=== PATIENT | male | born 1950 | race Caucasian/White ===

== ENCOUNTER 2017-02-25 20:58 | Emergency (ER) | payer MEDICARE ==
[~2017-02-25 20:58] MED LIST: ASPI81TA82 PO; DIVA250T PO; DIVA500 PO; LEVEMIR SQ; RISP25P IM; SYMB80AE INH; TAMS.4 PO
[2017-02-25 21:05] VITALS: BP 170/84; PULSE 73; RESP 18; TEMP 98.3; O2SAT 98
[2017-02-25] MEDS ORDERED: INSULIN HUMAN NPH/R 70/30 1,000 UNITS/10 ML VIAL SQ ONE (21:15)
[2017-02-25] MEDS ORDERED: SODIUM CHLORID 0.9% 500 ML INJ 500 ML IV ONE (21:15)
--- NOTE | 2017-02-25 21:22 | PD ---
HPI Chief Complaint: General Weakness Time Seen by Provider: 21:09 Travel History International Travel<30 days: No Contact w/Intl Traveler<30days: No Traveled to known affect area: No History of Present Illness HPI This Is a 66-year-old man who presents to the emergency department brought in by EMS because she's been feeling faint and weak lightheaded and unsteady since he started carbidopa/levodopa 10/100, 3 days ago. He otherwise had been feeling generally well. Denies any recent infections or illnesses. No other complaints. States symptoms started immediately after starting this new medication. Denies any other new or worsening symptoms. No other complaints. History Past Medical History Narrative Medical Diabetes CAD, history Chronic Kidney Disease Hypertension Bipolar Disorder, Schizophrenia Dementia Parkinson's Disease Social History Alcohol Use: No Tobacco Use: No Allergies-Medications (Allergen,Severity, Reaction): Coded Allergies: No Known Allergies (Unverified , 02/25/17) Reported Meds & Prescriptions Reported Meds & Active Scripts Active Reported Novolog Mix 70-30 Inj (Insulin Aspart Prota 70%/Aspart 30%) 1,000 Unit/10 Ml Vial 10 Units SQ BID Carbidopa-Levodopa 10-100 Mg Tab 1 Tab PO Q8HR Ranitidine (Ranitidine HCl) 150 Mg Cap 150 Mg PO BID Divalproex ER (Divalproex Sodium) 500 Mg Tab 500 Mg PO BID Pantoprazole (Pantoprazole Sodium) 40 Mg Tab 40 Mg PO DAILY Benztropine (Benztropine Mesylate) 1 Mg Tab 1 Mg PO HS Tamsulosin (Tamsulosin HCl) 0.4 Mg Cap 0.4 Mg PO HS Risperidone 2 Mg Tab 2 Mg PO HS Aspirin 81 Mg Tabdr 81 Mg PO DAILY Lisinopril 5 Mg Tab 5 Mg PO DAILY Review of Systems Except as stated in HPI: all other systems reviewed are Neg Physical Exam Narrative GENERAL: Well-appearing 66 old man, obvious resting tremor worse in the right upper extremity. SKIN: Focused skin assessment warm/dry. NECK: Trachea midline. No JVD. CARDIOVASCULAR: Regular rate and rhythm. No murmur appreciated. RESPIRATORY: No accessory muscle use. Clear to auscultation. Breath sounds equal bilaterally. GASTROINTESTINAL: Abdomen soft, non-tender, nondistended. Hepatic and splenic margins not palpable. MUSCULOSKELETAL: No obvious deformities. No edema. NEUROLOGICAL: Awake and alert. No obvious cranial nerve deficits. Tremor in the upper extremities, right worse than left. Motor grossly within normal limits. Normal speech. Data Data Last Documented VS Vital Signs Date Time Temp Pulse Resp B/P Pulse Ox O2 Delivery O2 Flow Rate FiO2 02/25/17 21:10 16 96 Room Air 02/25/17 21:05 98.3 73 170/84 Orders Complete Blood Count With Diff (02/25/17 21:09) Comprehensive Metabolic Panel (02/25/17 21:09) Valproic Acid (Depakene) (02/25/17 21:09) Iv Access Insert/Monitor (02/25/17 21:09) Urinalysis - C+S If Indicated (02/25/17 21:09) Troponin I (02/25/17 21:09) Thyroid Stimulating Hormone (02/25/17 21:09) Electrocardiogram (02/25/17 ) Insulin Human Nph/R 70/30 Inj (Novolin 7 (02/25/17 21:15) Sodium Chlorid 0.9% 500 Ml Inj (Ns 500 M (02/25/17 21:15) Labs Laboratory Tests Test 02/25/17 02/25/17 21:15 22:15 White Blood Count 6.8 TH/MM3 Red Blood Count 4.26 MIL/MM3 Hemoglobin 13.4 GM/DL Hematocrit 39.6 % Mean Corpuscular Volume 93.1 FL Mean Corpuscular Hemoglobin 31.5 PG Mean Corpuscular Hemoglobin 33.8 % Concent Red Cell Distribution Width 13.7 % Platelet Count 120 TH/MM3 Mean Platelet Volume 10.1 FL Neutrophils (%) (Auto) 66.7 % Lymphocytes (%) (Auto) 22.4 % Monocytes (%) (Auto) 7.0 % Eosinophils (%) (Auto) 3.5 % Basophils (%) (Auto) 0.4 % Neutrophils # (Auto) 4.5 TH/MM3 Lymphocytes # (Auto) 1.5 TH/MM3 Monocytes # (Auto) 0.5 TH/MM3 Eosinophils # (Auto) 0.2 TH/MM3 Basophils # (Auto) 0.0 TH/MM3 CBC Comment DIFF FINAL Differential Comment Sodium Level 138 MEQ/L Potassium Level 5.5 MEQ/L Chloride Level 105 MEQ/L Carbon Dioxide Level 22.5 MEQ/L Anion Gap 11 MEQ/L Blood Urea Nitrogen 38 MG/DL Creatinine 2.38 MG/DL Estimat Glomerular Filtration 28 ML/MIN Rate Random Glucose 294 MG/DL Calcium Level 7.7 MG/DL Total Bilirubin 0.3 MG/DL Aspartate Amino Transf 24 U/L (AST/SGOT) Alanine Aminotransferase 20 U/L (ALT/SGPT) Alkaline Phosphatase 75 U/L Troponin I LESS THAN 0.02 NG/ML Total Protein 5.7 GM/DL Albumin 2.8 GM/DL Thyroid Stimulating Hormone 1.800 uIU/ML 3rd Gen Valproic Acid (Depakene) Level 41 MCG/ML Urine Color LIGHT-YELLOW Urine Turbidity CLEAR Urine pH 6.0 Urine Specific [place] 1.014 Urine Protein 30 mg/dL Urine Glucose (UA) 1000 mg/dL Urine Ketones NEG mg/dL Urine Occult Blood TRACE Urine Nitrite NEG Urine Bilirubin NEG Urine Urobilinogen LESS THAN 2.0 MG/DL Urine Leukocyte Esterase NEG Urine RBC LESS THAN 1 /hpf Microscopic Urinalysis Comment CULT NOT INDICATED MDM Medical Decision Making Medical Screen Exam Complete: Yes Emergency Medical Condition: Yes Interpretation(s) LABS: CBC unremarkable. CMP remarkable for elevated BUN and creatinine consistent with chronic kidney disease, baseline creatinine about 2.2, potassium 5.5 with slight hemolysis Glucose 294 Troponin negative TSH normal Total protein low Valproate 41 Differential Diagnosis Adverse effect to medication, weakness, hyperglycemia, other Narrative Course Medical decision making INITIAL: This 66-year-old man who presents to the emergency department brought in by EMS, I think his sister called because he been feeling weak and lethargic , sleeping a lot, unsteady. He started Sinemet recently for Parkinson's and tremor. He does have chronic kidney disease. He is on other sedating medications including Risperdal at night that is unchanged. He otherwise has been feeling generally well. Denies any recent illness or injury. He called his doctor today who recommended "stopping all my medicines". He has not taken his insulin today. We'll check labs, review medication list, check kidney function, give insulin, reassess. Diagnosis Primary Impression: Adverse effects of medication Additional Impression: Lethargy Additional Instructions: Hold Sinemet until you follow up with her primary doctor on Tuesday. Return to the emergency department for any new or worsening symptoms. Disposition: 01 DISCHARGE HOME Condition: Stable [place] MD February 25, 2017 21:22
[2017-02-25 21:31] LABS: AUTOMATED NEUTROPHIL # 4.5 TH/MM3 (1.8-7.7); BASOPHIL % 0.4 % (0.0-2.0); EOSINOPHIL # 0.2 TH/MM3 (0-0.4); EOSINOPHIL % 3.5 % (0.0-4.0); HEMATOCRIT 39.6 % (39.0-51.0); HEMO FLAGS DIFF FINAL; LYMPH % 22.4 % (9.0-44.0); LYMPHOCYTE # 1.5 TH/MM3 (1.0-4.8); MEAN CELL VOLUME 93.1 FL (80.0-100.0); MEAN CORPUSCULAR HEMOGLOBIN 31.5 PG (27.0-34.0); MEAN CORPUSCULAR HGB CONC 33.8 % (32.0-36.0); NEUT % 66.7 % (16.0-70.0); PLATELET COUNT 120 TH/MM3 (150-450); RED BLOOD COUNT 4.26 MIL/MM3 (4.50-5.90); RED CELL DISTRIBUTION WIDTH 13.7 % (11.6-17.2); WHITE BLOOD COUNT 6.8 TH/MM3 (4.0-11.0)
[2017-02-25] MEDS ORDERED: DIVA500T3 PO (21:49)
[2017-02-25] MEDS ORDERED: NOVOLOGMXP SQ (21:49)
[2017-02-25] MEDS ORDERED: BENZ1TAB PO (21:49)
[2017-02-25] MEDS ORDERED: ASPI1TAB69 PO (21:49)
[2017-02-25] MEDS ORDERED: PANT40TA3 PO (21:49)
[2017-02-25] MEDS ORDERED: TAMS0.4C4 PO (21:49)
[2017-02-25] MEDS ORDERED: LISI-519 PO (21:49)
[2017-02-25] MEDS ORDERED: CARB10TA2 PO (21:49)
[2017-02-25] MEDS ORDERED: RISP2TAB2 PO (21:49)
[2017-02-25] MEDS ORDERED: RANI150C PO (21:49)
[2017-02-25 22:29] LABS: BLOOD, URINE TRACE (NEG); GLUCOSE,URINE 1000 mg/dL (NEG); KETONE, URINE NEG (NEG); NITRITE,URINE NEG (NEG); URINE COLOR LIGHT-YELLOW (YELLW/STRAW)
[2017-02-25 22:30] LABS: COMMENT (UR) CULT NOT INDICATED; CULTURE IF INDICATED CULT NOT INDICATED
[2017-02-25 22:38] LABS: ALT (GPT) 20 U/L (12-78); ANION GAP 11 MEQ/L (5-15); AST (GOT) 24 U/L (15-37); BICARBONATE 22.5 MEQ/L (21.0-32.0); BLOOD UREA NITROGEN 38 MG/DL (7-18); CHLORIDE 105 MEQ/L (98-107); GLOMERULAR FILTRATION RATE 28 ML/MIN (>89); SODIUM (NA) 138 MEQ/L (136-145)
[2017-02-25 22:45] LABS: ALKALINE PHOSPHATASE 75 U/L (45-117); TOTAL BILIRUBIN ADULT 0.3 MG/DL (0.2-1.0)
[2017-02-25 23:12] LABS: POTASSIUM 5.5 MEQ/L (3.5-5.1)
[2017-02-26 05:44] VITALS: BP 167/88; PULSE 74; RESP 15; O2SAT 96
--- NOTE | 2017-02-26 09:56 | EKG ---
Date Performed: 02/25/2017 Time Performed: 22:24:56 PTAGE: 66 years EKG: Sinus rhythm INDETERMINATE AXIS PATTERN CONSISTENT WITH PULMONARY DISEASE ST DEVIATION AND MODERATE T-WAVE ABNORM ALITY, CONSIDER LATERAL ISCHEMIA ABNORMAL ECG NO PREVIOUS TRACING DOCTOR: Randall Owusu Interpretating Date/Time 02/26/2017 09:54:58
== END 2017-02-26 09:53 | disposition home or self-care (01) ==
LOC: NEPC 20:58
DX: R53.83 Other fatigue (principal); T50.905A Adverse effect of unspecified drugs, medicaments and biological substances, initial encounter; I25.10 Atherosclerotic heart disease of native coronary artery without angina pectoris; I12.9 Hypertensive chronic kidney disease with stage 1 through stage 4 chronic kidney disease, or unspecified chronic kidney disease; E11.22 Type 2 diabetes mellitus with diabetic chronic kidney disease; N18.9 Chronic kidney disease, unspecified; R94.31 Abnormal electrocardiogram [ECG] [EKG]; Z79.4 Long term (current) use of insulin; Z79.82 Long term (current) use of aspirin; Z79.899 Other long term (current) drug therapy
CPT/HCPCS: 80053; 80164; 81001; 84443; 84484; 85025; 93005; 96360; 96361; 96372; 99285; J1815; J7040

== ENCOUNTER 2017-03-03 15:07 | Emergency (ER) | payer MEDICARE ==
[~2017-03-03] VITALS: Ht 170.2 cm; Wt 72.0 kg
[~2017-03-03 15:07] MED LIST changes: +ASPI1TAB69 PO; -ASPI81TA82 PO; +BENZ1TAB PO; +CARB10TA2 PO; -DIVA250T PO; -DIVA500 PO; +DIVA500T3 PO; -LEVEMIR SQ; +LISI-519 PO; +NOVOLOGMXP SQ; +PANT40TA3 PO; +RANI150C PO; -RISP25P IM; +RISP2TAB2 PO; -SYMB80AE INH; -TAMS.4 PO; +TAMS0.4C4 PO
[2017-03-03 15:10] VITALS: BP 157/84; PULSE 74; RESP 20; TEMP 97.4; O2SAT 96
--- NOTE | 2017-03-03 15:22 | PD ---
Physical Exam Date Seen by Provider: March 03, 2017 Time Seen by Provider: 15:19 Narrative Pt presents with generalized weakness, shaky feeling. He reports nausea and vomiting. Symptoms started over a year ago. He is followed by a neurologist. He also states he was here the other night with the same complaint. No chest pain, abdominal pain, no head injury. VSS, awaiting bed placement. Data Data Last Documented VS Vital Signs Date Time Temp Pulse Resp B/P Pulse Ox O2 Delivery O2 Flow Rate FiO2 03/03/17 15:10 97.4 74 20 157/84 96 Room Air [facility] Supervised Visit with RAFAEL: Bridget Velez March 03, 2017 15:22
[2017-03-03 16:43] VITALS: O2SAT 97
[2017-03-03] MEDS ORDERED: SODIUM CHLORIDE 0.9% FLUSH 10 ML FLUSH IVF PRN (16:45)
--- NOTE | 2017-03-03 16:48 | PD ---
HPI Chief Complaint: General Weakness Time Seen by Provider: 16:23 Travel History International Travel<30 days: No Contact w/Intl Traveler<30days: No Traveled to known affect area: No History of Present Illness HPI The patient is 66. He has generalized weakness. He feels tired and sleeps most of the day. He states it has been present for "quite some time." He reports evaluations by various doctors. He states he recently discontinued to medications however is not sure which medications are when there were discontinued. It seems as though he stopped taking Sinemet 2 days ago. He has no other systemic complaint to offer. Location generalized. Severity moderate. PFSH Past Medical History Arthritis: No Asthma: No Autoimmune Disease: No Bipolar Disorder: Yes Anxiety: Yes Depression: Yes Heart Rhythm Problems: No Cardiovascular Problems: Yes High Cholesterol: Yes Chest Pain: Yes Congestive Heart Failure: Yes COPD: Yes Cerebrovascular Accident: Yes Diabetes: Yes Diminished Hearing: Yes GERD: Yes Genitourinary: Yes Hiatal Hernia: Yes Hypertension: Yes Implanted Vascular Access Dvce: No Kidney Stones: No Musculoskeletal: No Neurologic: No Psychiatric: Yes Reproductive: No Respiratory: Yes Integumentary: Yes Migraines: No Myocardial Infarction: Yes Renal Failure: No Schizophrenia: Yes Sickle Cell Disease: No Sleep Apnea: No Thyroid Disease: No Ulcer: Yes Past Surgical History AICD: No Arteriovenous Shunt: No Cardiac Surgery: Yes Coronary Artery Bypass Graft: Yes (2012) Insulin Pump: No Joint Replacement: No Pacemaker: No Other Surgery: Yes (CABG 04/2013) Social History Alcohol Use: No Tobacco Use: No Substance Use: No Allergies-Medications (Allergen,Severity, Reaction): Coded Allergies: No Known Allergies (Unverified , 03/03/17) Reported Meds & Prescriptions Reported Meds & Active Scripts Active Reported Novolog Mix 70-30 Inj (Insulin Aspart Prota 70%/Aspart 30%) 1,000 Unit/10 Ml Vial 10 Units SQ BID Carbidopa-Levodopa 10-100 Mg Tab 1 Tab PO Q8HR Ranitidine (Ranitidine HCl) 150 Mg Cap 150 Mg PO BID Divalproex ER (Divalproex Sodium) 500 Mg Tab 500 Mg PO BID Pantoprazole (Pantoprazole Sodium) 40 Mg Tab 40 Mg PO DAILY Benztropine (Benztropine Mesylate) 1 Mg Tab 1 Mg PO HS Tamsulosin (Tamsulosin HCl) 0.4 Mg Cap 0.4 Mg PO HS Risperidone 2 Mg Tab 2 Mg PO HS Aspirin 81 Mg Tabdr 81 Mg PO DAILY Lisinopril 5 Mg Tab 5 Mg PO DAILY Review of Systems Except as stated in HPI: all other systems reviewed are Neg General / Constitutional: No: Fever, Chills Cardiovascular: No: Chest Pain or Discomfort Respiratory: No: Cough, Shortness of Breath Gastrointestinal: No: Nausea, Vomiting, Diarrhea, Abdominal Pain Physical Exam Narrative GENERAL: 66-year-old male well-nourished well-developed no acute distress SKIN: Focused skin assessment warm/dry. HEAD: Atraumatic. Normocephalic. EYES: Pupils equal and round. No scleral icterus. No injection or drainage. ENT: No nasal bleeding or discharge. Mucous membranes pink and moist. NECK: Trachea midline. No JVD. CARDIOVASCULAR: Regular rate and rhythm. No murmur appreciated. RESPIRATORY: No accessory muscle use. Clear to auscultation. Breath sounds equal bilaterally. GASTROINTESTINAL: Abdomen soft, non-tender, nondistended. Hepatic and splenic margins not palpable. MUSCULOSKELETAL: No obvious deformities. No clubbing. No cyanosis. No edema. NEUROLOGICAL: The patient answers questions appropriately. There is a focal cranial nerve deficit. He moves all extremities normally. PSYCHIATRIC: Appropriate mood and affect; insight and judgment normal. Data Data Last Documented VS Vital Signs Date Time Temp Pulse Resp B/P Pulse Ox O2 Delivery O2 Flow Rate FiO2 03/03/17 16:43 97 Room Air 03/03/17 15:10 97.4 74 20 157/84 Vital signs reviewed Orders Westergren Sedimentation Rate (03/03/17 16:25) Complete Blood Count With Diff (03/03/17 16:39) Comprehensive Metabolic Panel (03/03/17 16:39) Creatine Kinase (Cpk) (03/03/17 16:39) Troponin I (03/03/17 16:39) Urinalysis - C+S If Indicated (03/03/17 16:39) Blood Glucose (03/03/17 16:39) Ecg Monitoring (03/03/17 16:39) Iv Access Insert/Monitor (03/03/17 16:39) Oximetry (03/03/17 16:39) Sodium Chloride 0.9% Flush (Ns Flush) (03/03/17 16:45) Drug Screen, Random Urine (03/03/17 16:39) Alcohol (Ethanol) (03/03/17 16:39) Salicylates (Aspirin) (03/03/17 16:39) Tylenol (Acetaminophen) (03/03/17 16:39) Labs Laboratory Tests Test 03/03/17 16:50 White Blood Count 7.8 TH/MM3 Red Blood Count 4.56 MIL/MM3 Hemoglobin 14.2 GM/DL Hematocrit 42.4 % Mean Corpuscular Volume 92.9 FL Mean Corpuscular Hemoglobin 31.0 PG Mean Corpuscular Hemoglobin 33.4 % Concent Red Cell Distribution Width 13.5 % Platelet Count 157 TH/MM3 Mean Platelet Volume 11.0 FL Neutrophils (%) (Auto) 78.7 % Lymphocytes (%) (Auto) 13.8 % Monocytes (%) (Auto) 6.5 % Eosinophils (%) (Auto) 0.7 % Basophils (%) (Auto) 0.3 % Neutrophils # (Auto) 6.1 TH/MM3 Lymphocytes # (Auto) 1.1 TH/MM3 Monocytes # (Auto) 0.5 TH/MM3 Eosinophils # (Auto) 0.1 TH/MM3 Basophils # (Auto) 0.0 TH/MM3 CBC Comment DIFF FINAL Differential Comment MDM Medical Decision Making Medical Screen Exam Complete: Yes Emergency Medical Condition: Yes Medical Record Reviewed: Yes Differential Diagnosis Dehydration, electrolyte imbalance, infection, polypharmacy Narrative Course Blood work pending at time of dictation. Oncoming provider to follow up results and disposition appropriately. Finn Mathew MD March 03, 2017 16:48
[2017-03-03 17:05] LABS: AUTOMATED NEUTROPHIL # 6.1 TH/MM3 (1.8-7.7); BASOPHIL % 0.3 % (0.0-2.0); EOSINOPHIL # 0.1 TH/MM3 (0-0.4); EOSINOPHIL % 0.7 % (0.0-4.0); HEMATOCRIT 42.4 % (39.0-51.0); HEMO FLAGS DIFF FINAL; LYMPH % 13.8 % (9.0-44.0); LYMPHOCYTE # 1.1 TH/MM3 (1.0-4.8); MEAN CELL VOLUME 92.9 FL (80.0-100.0); MEAN CORPUSCULAR HGB CONC 33.4 % (32.0-36.0); MONO % 6.5 % (0.0-8.0); NEUT % 78.7 % (16.0-70.0); PLATELET COUNT 157 TH/MM3 (150-450); RED BLOOD COUNT 4.56 MIL/MM3 (4.50-5.90); RED CELL DISTRIBUTION WIDTH 13.5 % (11.6-17.2); WHITE BLOOD COUNT 7.8 TH/MM3 (4.0-11.0)
[2017-03-03 17:25] LABS: ALT (GPT) 24 U/L (12-78); ANION GAP 8 MEQ/L (5-15); AST (GOT) 31 U/L (15-37); BICARBONATE 23.6 MEQ/L (21.0-32.0); BLOOD UREA NITROGEN 34 MG/DL (7-18); CHLORIDE 103 MEQ/L (98-107); GLOMERULAR FILTRATION RATE 31 ML/MIN (>89); SODIUM (NA) 135 MEQ/L (136-145)
[2017-03-03 17:29] LABS: ACETAMINOPHEN LESS THAN 2.0 MCG/ML (10.0-30.0); ALKALINE PHOSPHATASE 72 U/L (45-117); CREATINE KINASE 112 U/L (39-308); POTASSIUM 5.7 MEQ/L (3.5-5.1); TOTAL BILIRUBIN ADULT 0.5 MG/DL (0.2-1.0)
[2017-03-03 18:21] LABS: BLOOD, URINE SMALL (NEG); GLUCOSE,URINE 300 mg/dL (NEG); KETONE, URINE 10 mg/dL (NEG); NITRITE,URINE NEG (NEG); URINE COLOR YELLOW (YELLW/STRAW)
[2017-03-03 18:35] LABS: COMMENT (UR) CATH-CULT NOT IND; CULTURE IF INDICATED CATH CULTURE NOT IND
[2017-03-03 18:48] VITALS: BP 166/91; PULSE 69; RESP 18; O2SAT 97
--- NOTE | 2017-03-03 18:57 | PD ---
Physical Exam Date Seen by Provider: March 03, 2017 Data Data Last Documented VS Vital Signs Date Time Temp Pulse Resp B/P Pulse Ox O2 Delivery O2 Flow Rate FiO2 03/03/17 18:48 69 18 166/91 97 Room Air 03/03/17 15:10 97.4 Orders Westergren Sedimentation Rate (03/03/17 16:25) Complete Blood Count With Diff (03/03/17 16:39) Comprehensive Metabolic Panel (03/03/17 16:39) Creatine Kinase (Cpk) (03/03/17 16:39) Troponin I (03/03/17 16:39) Urinalysis - C+S If Indicated (03/03/17 16:39) Blood Glucose (03/03/17 16:39) Ecg Monitoring (03/03/17 16:39) Iv Access Insert/Monitor (03/03/17 16:39) Oximetry (03/03/17 16:39) Sodium Chloride 0.9% Flush (Ns Flush) (03/03/17 16:45) Drug Screen, Random Urine (03/03/17 16:39) Alcohol (Ethanol) (03/03/17 16:39) Salicylates (Aspirin) (03/03/17 16:39) Tylenol (Acetaminophen) (03/03/17 16:39) Electrocardiogram (03/03/17 ) Calcium Gluconate Inj (Calcium Gluconate (03/03/17 19:00) Insulin Human Regular Inj (Novolin R Inj (03/03/17 19:15) Dextrose 50% In Patricia (Vial) Inj (D50w (Vi (03/03/17 19:00) Sodium Bicarbonate 8.4% Inj (Sodium Bica (03/03/17 19:00) Basic Metabolic Panel (Bmp) (03/03/17 19:00) Sodium Polysty Sulfate Liq (Kayexalate L (03/03/17 19:00) Sodium Bicarbonate 8.4% Inj (Sodium Bica (03/03/17 19:30) Labs Laboratory Tests Test 03/03/17 03/03/17 03/03/17 16:50 18:10 19:20 White Blood Count 7.8 TH/MM3 Red Blood Count 4.56 MIL/MM3 Hemoglobin 14.2 GM/DL Hematocrit 42.4 % Mean Corpuscular Volume 92.9 FL Mean Corpuscular Hemoglobin 31.0 PG Mean Corpuscular Hemoglobin 33.4 % Concent Red Cell Distribution Width 13.5 % Platelet Count 157 TH/MM3 Mean Platelet Volume 11.0 FL Neutrophils (%) (Auto) 78.7 % Lymphocytes (%) (Auto) 13.8 % Monocytes (%) (Auto) 6.5 % Eosinophils (%) (Auto) 0.7 % Basophils (%) (Auto) 0.3 % Neutrophils # (Auto) 6.1 TH/MM3 Lymphocytes # (Auto) 1.1 TH/MM3 Monocytes # (Auto) 0.5 TH/MM3 Eosinophils # (Auto) 0.1 TH/MM3 Basophils # (Auto) 0.0 TH/MM3 CBC Comment DIFF FINAL Differential Comment Sodium Level 135 MEQ/L 136 MEQ/L Potassium Level 5.7 MEQ/L 4.7 MEQ/L Chloride Level 103 MEQ/L 102 MEQ/L Carbon Dioxide Level 23.6 MEQ/L 24.7 MEQ/L Anion Gap 8 MEQ/L 9 MEQ/L Blood Urea Nitrogen 34 MG/DL 34 MG/DL Creatinine 2.16 MG/DL 2.12 MG/DL Estimat Glomerular Filtration 31 ML/MIN 32 ML/MIN Rate Random Glucose 167 MG/DL 152 MG/DL Calcium Level 9.0 MG/DL 8.7 MG/DL Total Bilirubin 0.5 MG/DL Aspartate Amino Transf 31 U/L (AST/SGOT) Alanine Aminotransferase 24 U/L (ALT/SGPT) Alkaline Phosphatase 72 U/L Total Creatine Kinase 112 U/L Troponin I LESS THAN 0.02 NG/ML Total Protein 6.8 GM/DL Albumin 3.3 GM/DL Salicylates Level LESS THAN 1.7 MG/DL Acetaminophen Level LESS THAN 2.0 MCG/ML Ethyl Alcohol Level LESS THAN 3 MG/DL Urine Color YELLOW Urine Turbidity CLEAR Urine pH 6.0 Urine Specific [place] 1.016 Urine Protein 100 mg/dL Urine Glucose (UA) 300 mg/dL Urine Ketones 10 mg/dL Urine Occult Blood SMALL Urine Nitrite NEG Urine Bilirubin NEG Urine Urobilinogen LESS THAN 2.0 MG/DL Urine Leukocyte Esterase NEG Urine RBC 1 /hpf Urine WBC 1 /hpf Microscopic Urinalysis Comment CATH-CULT NOT IND MDM Medical Record Reviewed: Yes Supervised Visit with RAFAEL: No Narrative Course Patient signed out to me by Dr. Mathew at change of shift. Patient is a 66-year-old male with hx of CAD who presents to emergency room with complaints of generalized weakness. Patient reports that his symptoms have been ongoing for the past few weeks, reports that he was seen by his primary care doctor and was seen in the emergency room a few days ago for similar symptoms. Patient was told to go to a neurologist, reports that he saw a neurologist 3 days ago and was started on 2 medications. Reports that his medications are not helping with his symptoms. Patient reports that he feels weak all over the place, reports that he has a shuffling gait. cbc: wnl bmp: sodium 135 chloride: 103 potassium 5.7 BUN: 34 Cr: 2.16 this is patients second visit to the ER for generalized weakness. His weakness could be do to symptomatic hyperkalemia as he has overall weakness EKG NSR at 69bpm, qt/qtc: 398/418, no hyperacute t waves, st depression lateral leads - ekg similar to previous ekg repeat bmp sent as patient's potassium was hemolyzed plan to obs for symptomatic hyperkalemia if he is truly hyperkalemic repeat bmp: Sodium 136 Potassium 4.7 BUN 34 Creatinine 2.12 Patient's repeat potassium 4.7, not hyperkalemic, does not require admission to the hospital. Patient reports that he has worsening symptoms as far as shuffling gait as well as tremors to his hands, reports that he stopped taking his Parkinson's medicines 3 days ago, I did instruct him to restart his medications as this has helped the symptoms. Patient will follow-up with his neurologist as an outpatient. Signs and symptoms of when to return to emergency room was reviewed patient in detail. Diagnosis Primary Impression: Weakness generalized Admitting Information Admitting Physician Requests: Observation Patient Instructions: General Instructions Additional Instruction: Please follow-up with your primary care doctor as well as your neurologist in 2- 3 days Return to emergency room if symptoms worsen or progress Return to emergency room as needed Please take all your medications as prescribed Disposition: 01 DISCHARGE HOME Condition: Stable Arin Mack DO March 03, 2017 18:57
[2017-03-03] MEDS ORDERED: SODIUM POLYSTYRENE SULFONATE SUSP 15 GM/60 ML CUP PO ONE (19:00)
[2017-03-03] MEDS ORDERED: SODIUM BICARBONATE 8.4% SOLN 50 MEQ/50 ML VIAL SLOW IVP ONE (19:00)
[2017-03-03] MEDS ORDERED: CALCIUM GLUCONATE 10% 1 GM/10 ML VIAL SLOW IVP ONE (19:00)
[2017-03-03] MEDS ORDERED: DEXTROSE 50% IN WATER 50 ML VIAL(D50) IV PUSH ONE (19:00)
[2017-03-03] MEDS ORDERED: INSULIN HUMAN REGULAR 1,000 UNITS/10 ML VIAL IV PUSH ONE (19:15)
[2017-03-03] MEDS ORDERED: SODIUM BICARBONATE 8.4% INJ 50 MEQ/50 ML SYR IV PUSH ONE (19:30)
[2017-03-03 20:15] LABS: BICARBONATE 24.7 MEQ/L (21.0-32.0); POTASSIUM 4.7 MEQ/L (3.5-5.1)
--- NOTE | 2017-03-03 21:22 | EKG ---
Date Performed: 03/03/2017 Time Performed: 18:53:18 PTAGE: 66 years EKG: BASELINE ARTIFACT PRESENT. Sinus rhythm MARKED LEFT AXIS DEVIATION SEPTAL MYOCARDIAL INFARCTION Nonspecific T wave changes ABNORMAL ECG NO S IGNIFICANT CHANGE FROM PRIOR ELECTROCARDIOGRAM. PREVIOUS TRACING : 02/25/2017 22.24 DOCTOR: Edwar Hoyt Interpretating Date/Time 03/03/2017 21:21:38
[2017-03-04 01:59] LABS: AMPHETAMINE, URINE NEG (NEG); BARBITURATES, URINE NEG (NEG); COCAINE, URINE NEG (NEG)
== END 2017-03-03 20:38 | disposition home or self-care (01) ==
LOC: NEPD 15:07
DX: R53.1 Weakness (principal); F31.9 Bipolar disorder, unspecified; F41.8 Other specified anxiety disorders; E78.00 Pure hypercholesterolemia, unspecified; I50.9 Heart failure, unspecified; Z86.73 Personal history of transient ischemic attack (TIA), and cerebral infarction without residual deficits; R94.31 Abnormal electrocardiogram [ECG] [EKG]; G20 Parkinson's disease; I10 Essential (primary) hypertension; I25.2 Old myocardial infarction; F20.9 Schizophrenia, unspecified; Z95.1 Presence of aortocoronary bypass graft; Z91.14 Patient's other noncompliance with medication regimen
CPT/HCPCS: 80048; 80053; 80307; 81001; 82550; 84484; 85025; 93005